=== PATIENT | male | born 1990 ===

== ENCOUNTER 2023-08-26 13:56 | Emergency (ER) | payer OTHER ==
[~2023-08-26] VITALS: Ht 182.9 cm; Wt 81.8 kg
[2023-08-26 13:57] VITALS: BP 126/75; PULSE 88; RESP 16; TEMP 98.4
[2023-08-26] MEDS: KETOROLAC TROMETHAMINE 30 MG/ML VIAL IM ONE (15:04)
[2023-08-26] MEDS: PERTUSS(ACELL),DIPH,TET/PF 0.5 ML SYRINGE [ADULT] IM. ONE (15:34)
== END 2023-08-26 16:06 | disposition home or self-care (01) ==
LOC: EMS 14:03
DX: S63.91XA Sprain of unspecified part of right wrist and hand, initial encounter (principal); S60.221A Contusion of right hand, initial encounter; Z88.5 Allergy status to narcotic agent; X58.XXXA Exposure to other specified factors, initial encounter; Y93.89 Activity, other specified; Y92.89 Other specified places as the place of occurrence of the external cause; Y99.8 Other external cause status
CPT/HCPCS: 99284; 73130; 90715; 90471; 96372; J1885